=== PATIENT | male | born 1960 | race Two or more races ===

== ENCOUNTER 2016-09-22 10:09 | Observation (INO) | payer BC ==
[2016-09-22] MEDS ORDERED: ONDANSETRON 4 MG/2 ML VIAL IVP STA (10:46)
[2016-09-22] MEDS ORDERED: SODIUM CHLORIDE 0.9% 1,000 ML IV STA (10:46)
--- NOTE | 2016-09-22 10:52 | ED ---
General Adult HPI - General Source: patient, RN notes reviewed Mode of arrival: ambulatory Limitations: no limitations <Arvind Jiménez - Last Filed: 09/22/16 13:31> <Garrett Cruz - Last Filed: 09/22/16 22:05> - General Chief complaint: Nausea/Vomiting/Diarrhea Stated complaint: NAUSEA Time Seen by Provider: 09/22/16 10:36 - History of Present Illness Initial comments: Patient is a 55-year-old male who presents emergency room today with a chief complaint of nausea. Patient states she's had nausea with increased belching over the last 3-4 days. Patient states that seems to be worse when he eats or drinks. Patient denies any abdominal pain. States he did talk to a GI doctor who would like to do a scope and advised him come to the emergency room to have workup on the gallbladder performed. States was also worried about possible inferior NV as his had increased belching. Patient denies any pain. Denies any other complaints symptoms. Patient denies any recent fever, chills, shortness of breath, chest pain, back pain, abdominal pain, nausea or vomiting, numbness or tingling, dysuria or hematuria, constipation or diarrhea, headaches or visual changes, or any other complaints. (Arvind Jiménez) - Related Data Home Medications Medication Instructions Recorded Confirmed Omeprazole [PriLOSEC] 20 mg PO AC-BRKFST 09/22/16 09/22/16 Allergies Allergy/AdvReac Type Severity Reaction Status Date / Time Latex, Natural Rubber Allergy Unknown Verified 09/22/16 10:37 Review of Systems ROS Other: All systems not noted in ROS Statement are negative. <Arvind Jiménez - Last Filed: 09/22/16 13:31> ROS Other: All systems not noted in ROS Statement are negative. <Garrett Cruz - Last Filed: 09/22/16 22:05> ROS Statement: Those systems with pertinent positive or pertinent negative responses have been documented in the HPI. Past Medical History Past Medical History: GERD/Reflux, Hypertension History of Any Multi-Drug Resistant Organisms: None Reported Additional Past Surgical History / Comment(s): left hernia repair, varicose veins Past Anesthesia/Blood Transfusion Reactions: No Reported Reaction Past Psychological History: No Psychological Hx Reported Smoking Status: Former smoker Past Alcohol Use History: None Reported Past Drug Use History: None Reported - Past Family History Father Family Medical History: No Reported History <Ashu Jiménezony - Last Filed: 09/22/16 13:31> General Exam Limitations: no limitations <Arvind Jiménez - Last Filed: 09/22/16 13:31> <Garrett Cruz - Last Filed: 09/22/16 22:05> - General Exam Comments Initial Comments: General: The patient is awake and alert, in no distress, and does not appear acutely ill. Eye: Pupils are equal, round and reactive to light, extra-ocular movements are intact. No nystagmus. There is normal conjunctiva bilaterally. No signs of icterus. Ears, nose, mouth and throat: There are moist mucous membranes and no oral lesions. Neck: The neck is supple, there is no tenderness or JVD. Cardiovascular: There is a regular rate and rhythm. No murmur, rub or gallop is appreciated. Respiratory: Lungs are clear to auscultation, respirations are non-labored, breath sounds are equal. No wheezes, stridor, rales, or rhonchi. Gastrointestinal: Soft, non-distended, non-tender abdomen without masses or organomegaly noted. There is no rebound or guarding present. No CVA tenderness. Bowel sounds are unremarkable. Musculoskeletal: Normal ROM, no tenderness. Strength 5/5. Sensation intact. Pulses equal bilaterally 2+. Neurological: A&O x 3. CN II-XII intact, There are no obvious motor or sensory deficits. Coordination appears grossly intact. Speech is normal. Skin: Skin is warm and dry and no rashes or lesions are noted. Psychiatric: Cooperative, appropriate mood & affect, normal judgment. (Arvind Jiménez) Medical Decision Making - Lab Data Result diagrams: 09/22/16 11:18 09/22/16 11:18 <Arvind Jiménez - Last Filed: 09/22/16 13:31> - Lab Data Result diagrams: 09/22/16 11:18 09/22/16 11:18 <Garrett Cruz - Last Filed: 09/22/16 22:05> - Medical Decision Making Patient's labs reviewed and are unremarkable. Case discussed and seen by attending physician Dr. Cruz at bedside. He discuss case with GI specialist Dr. Sarkar will plan to do a scope tomorrow also discussed with admitting physician Dr. Reyes who admit the patient for serial enzymes. (Arvind Jiménez) I saw this patient in conjunction with the physician promotional advertising assistant. I performed independent history and physical exam. Agree with case management. (Garrett Cruz) - Lab Data Lab Results 09/22/16 09/22/16 09/22/16 Range/Units 11:18 11:18 11:18 WBC 5.1 (3.8-10.6) k/uL RBC 5.37 (4.30-5.90) m/uL Hgb 16.1 (13.0-17.5) gm/dL Hct 47.7 (39.0-53.0) % MCV 88.7 (80.0-100.0) fL MCH 30.0 (25.0-35.0) pg MCHC 33.8 (31.0-37.0) g/dL RDW 13.3 (11.5-15.5) % Plt Count 221 (150-450) k/uL Neutrophils % 67 % Lymphocytes % 24 % Monocytes % 6 % Eosinophils % 1 % Basophils % 1 % Neutrophils # 3.4 (1.3-7.7) k/uL Lymphocytes # 1.2 (1.0-4.8) k/uL Monocytes # 0.3 (0-1.0) k/uL Eosinophils # 0.0 (0-0.7) k/uL Basophils # 0.0 (0-0.2) k/uL PT 10.9 (9.0-12.0) sec INR 1.1 (<1.1) APTT 22.6 (22.0-30.0) sec Sodium 141 (137-145) mmol/L Potassium 4.1 (3.5-5.1) mmol/L Chloride 104 (98-107) mmol/L Carbon Dioxide 26 (22-30) mmol/L Anion Gap 11 mmol/L BUN 13 (9-20) mg/dL Creatinine 0.78 (0.66-1.25) mg/dL Est GFR (MDRD) Af Amer >60 (>60 ml/min/1.73 sqM) Est GFR (MDRD) Non-Af >60 (>60 ml/min/1.73 sqM) Glucose 103 H (74-99) mg/dL Calcium 9.0 (8.4-10.2) mg/dL Total Bilirubin 0.7 (0.2-1.3) mg/dL AST 25 (17-59) U/L ALT 44 (21-72) U/L Alkaline Phosphatase 66 (38-126) U/L Total Creatine Kinase (55-170) U/L CK-MB (CK-2) (0.0-2.4) ng/mL CK-MB (CK-2) Rel Index Troponin I (0.000-0.034) ng/mL Total Protein 7.8 (6.3-8.2) g/dL Albumin 4.3 (3.5-5.0) g/dL Amylase 95 (30-110) U/L Lipase 38 (23-300) U/L Urine Color Urine Appearance (Clear) Urine pH (5.0-8.0) Ur Specific Homer (1.001-1.035) Urine Protein (Negative) Urine Glucose (UA) (Negative) Urine Ketones (Negative) Urine Blood (Negative) Urine Nitrate (Negative) Urine Bilirubin (Negative) Urine Urobilinogen (<2.0) mg/dL Ur Leukocyte Esterase (Negative) 09/22/16 09/22/16 Range/Units 11:18 12:35 WBC (3.8-10.6) k/uL RBC (4.30-5.90) m/uL Hgb (13.0-17.5) gm/dL Hct (39.0-53.0) % MCV (80.0-100.0) fL MCH (25.0-35.0) pg MCHC (31.0-37.0) g/dL RDW (11.5-15.5) % Plt Count (150-450) k/uL Neutrophils % % Lymphocytes % % Monocytes % % Eosinophils % % Basophils % % Neutrophils # (1.3-7.7) k/uL Lymphocytes # (1.0-4.8) k/uL Monocytes # (0-1.0) k/uL Eosinophils # (0-0.7) k/uL Basophils # (0-0.2) k/uL PT (9.0-12.0) sec INR (<1.1) APTT (22.0-30.0) sec Sodium (137-145) mmol/L Potassium (3.5-5.1) mmol/L Chloride (98-107) mmol/L Carbon Dioxide (22-30) mmol/L Anion Gap mmol/L BUN (9-20) mg/dL Creatinine (0.66-1.25) mg/dL Est GFR (MDRD) Af Amer (>60 ml/min/1.73 sqM) Est GFR (MDRD) Non-Af (>60 ml/min/1.73 sqM) Glucose (74-99) mg/dL Calcium (8.4-10.2) mg/dL Total Bilirubin (0.2-1.3) mg/dL AST (17-59) U/L ALT (21-72) U/L Alkaline Phosphatase (38-126) U/L Total Creatine Kinase 92 (55-170) U/L CK-MB (CK-2) 1.7 (0.0-2.4) ng/mL CK-MB (CK-2) Rel Index 1.8 Troponin I <0.012 (0.000-0.034) ng/mL Total Protein (6.3-8.2) g/dL Albumin (3.5-5.0) g/dL Amylase (30-110) U/L Lipase (23-300) U/L Urine Color Yellow Urine Appearance Clear (Clear) Urine pH 5.5 (5.0-8.0) Ur Specific Homer 1.012 (1.001-1.035) Urine Protein Negative (Negative) Urine Glucose (UA) Negative (Negative) Urine Ketones Negative (Negative) Urine Blood Negative (Negative) Urine Nitrate Negative (Negative) Urine Bilirubin Negative (Negative) Urine Urobilinogen <2.0 (<2.0) mg/dL Ur Leukocyte Esterase Negative (Negative) Disposition Time of Disposition: 13:32 <Arvind Jiménez - Last Filed: 09/22/16 13:31> <Garrett Cruz - Last Filed: 09/22/16 22:05> Clinical Impression: Nausea, Indigestion Disposition: ADMITTED IP TO THIS [facility] Condition: Good Addendum entered and electronically signed by Arvind Jiménez PAC 09/22/16 13: 55: EKG performed at 1123: A 12-lead EKG was performed and interpreted by me as showing the following: Rate is 60, and rhythm is normal sinus. There are normal QRS complexes and normal R-wave progression. ST segments have no elevation or depression, and MT segments appear normal.
[2016-09-22 11:55] LABS: Basophils % (A) 1 %; CH 30.9; CHCM 34.9; Eosinophils % (A) 1 %; HCT 47.7 % (39.0-53.0); HGB 16.1 gm/dL (13.0-17.5); Luc # (Auto) 0.07; Luc % (Auto) 1; Lymphocytes # (A) 1.2 k/uL (1.0-4.8); Lymphocytes % (A) 24 %; MCHC 33.8 g/dL (31.0-37.0); MCV 88.7 fL (80.0-100.0); Mean Platelet Volume 7.6; Monocytes # (A) 0.3 k/uL (0-1.0); Monocytes % (A) 6 %; Neutrophils # (A) 3.4 k/uL (1.3-7.7); Neutrophils % (A) 67 %; RBC 5.37 m/uL (4.30-5.90); RDW 13.3 % (11.5-15.5); WBC 5.1 k/uL (3.8-10.6); WBC (Perox) 4.58
--- NOTE | 2016-09-22 12:13 | US ---
EXAMINATION TYPE: US abdomen limited DATE OF EXAM: 09/22/2016 11:58 AM COMPARISON: No previous CLINICAL HISTORY: Nausea x 1 week. EXAM MEASUREMENTS: Liver Length: 17.3cm Gallbladder Wall: 0.2cm CBD: 0.4cm Right Kidney: 12.1 x 5.2 x 5.6cm TECHNOLOGIST IMPRESSION: Pancreas: obscured by bowel gas Liver: measures in upper limits of normal at 17.3cm, limited by rib shadowing Gallbladder: wnl Evidence for sonographic Riggs's sign: no CBD: visualized portion wnl, limited by overlying bowel gas Right Kidney: visualized portions wnl, limited by rib shadowing and overlying bowel gas IMPRESSION: Liver is at the upper limit of normal for size. Exam is limited.
[2016-09-22 12:20] LABS: INR 1.1 (<1.1); Partial Thromboplastin Time 22.6 sec (22.0-30.0); Prothrombin Time 10.9 sec (9.0-12.0)
[2016-09-22 12:26] LABS: ALT 44 U/L (21-72); AST 25 U/L (17-59); Alkaline Phosphatase 66 U/L (38-126); Anion Gap 11 mmol/L; Blood Urea Nitrogen 13 mg/dL (9-20); Carbon Dioxide 26 mmol/L (22-30); Chloride 104 mmol/L (98-107); Glucose 103 mg/dL (74-99); Non-African American GFR(MDRD) >60 (>60 ml/min/1.73 sqM); Sodium 141 mmol/L (137-145); Total Bilirubin 0.7 mg/dL (0.2-1.3); Total Protein 7.8 g/dL (6.3-8.2)
[2016-09-22 12:41] LABS: Amylase 95 U/L (30-110); Potassium 4.1 mmol/L (3.5-5.1)
[2016-09-22 12:42] LABS: Creatine Kinase 92 U/L (55-170)
[2016-09-22 12:47] LABS: Appearance,Urine Clear (Clear); Bilirubin,Urine Negative (Negative); Glucose,Urine (UA) Negative (Negative); Ketones,Urine Negative (Negative); Leukocyte Esterase,Urine Negative (Negative); Nitrite,Urine Negative (Negative); PH, Urine 5.5 (5.0-8.0); Protein,Urine Negative (Negative); Specific Gravity,Urine 1.012 (1.001-1.035); UA Billing (MACRO vs. MICRO) CHEM; Urobilinogen,Urine <2.0 mg/dL (<2.0)
[2016-09-22 12:54] LABS: Creatine Kinase MB 1.7 ng/mL (0.0-2.4); Troponin I <0.012 ng/mL (0.000-0.034)
[2016-09-22] MEDS ORDERED: ONDANSETRON 4 MG/2 ML VIAL IVP PRN (13:33)
[2016-09-22] MEDS ORDERED: ACETAMINOPHEN TAB 325 MG TAB PO PRN (13:33)
[2016-09-22] MEDS ORDERED: NALOXONE 0.4 MG/ML 1 ML VIAL IV PRN (13:33)
[2016-09-22] MEDS ORDERED: SODIUM CHLORIDE 0.9% 1,000 ML IV ONE (13:33)
[2016-09-22] MEDS ORDERED: NITROGLYCERIN SL TABS 0.4 MG TAB SUBLINGUAL PRN (13:35)
[2016-09-22 17:44] LABS: Creatine Kinase 78 U/L (55-170)
[2016-09-22 17:56] LABS: Creatine Kinase MB 1.3 ng/mL (0.0-2.4); Troponin I <0.012 ng/mL (0.000-0.034)
--- NOTE | 2016-09-22 19:07 | HP ---
DATE OF ADMISSION: This patient is a 55-year-old who came in with complaints of belching, nausea that has been going on for about 7 days. Patient does not seem to eat anything or like anything. Patient denied any abdominal pain, denied any GI bleed. Patient called a lehr cutter. 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 To rule out inferior wall myocardial infarction, we are admitting the patient ( ) with a couple of sets of troponins. EKG was done which showed some possibly significant Q waves, because of which I am consulting Cardiology as well. Patient denied any fever, chills. Patient denied any abdominal pain, dysuria, headaches. ROS: all other systems were reviewed and were negative. Home medications include omeprazole, which is not helping his symptoms. PAST MEDICAL HISTORY: 1. Gastroesophageal reflux disease. 2. Hypertension. 3. Hiatal hernia repair. 4. Varicose veins. SOCIAL HISTORY: Former smoker. Quit smoking years ago. Denied any alcohol abuse or any drug abuse. FAMILY HISTORY: Denied any family history of hypertension, diabetes mellitus or hyperlipidemia in the family. PHYSICAL EXAMINATION: VITAL SIGNS: Temperature 97.9, pulse of 73, respiratory rate of 18, blood pressure 132/75. Saturating at 98% on room air. GENERAL: The patient is alert and oriented x3, not in any acute distress. Well developed, well nourished. HEENT: Pupils are round and equally reacting to light. EOMI. No scleral icterus. No conjunctival pallor. Normocephalic, atraumatic. No pharyngeal erythema. No thyromegaly. CARDIOVASCULAR: S1 and S2 present. No murmurs, rubs, or gallops. PULMONARY: Chest is clear to auscultation, no wheezing or crackles. ABDOMEN: Soft, nontender, nondistended, normoactive bowel sounds. No palpable organomegaly. MUSCULOSKELETAL: No joint swelling or deformity. EXTREMITIES: No cyanosis, clubbing, or pedal edema. NEUROLOGICAL: Gross neurological examination did not reveal any focal deficits. SKIN: No rashes. LABORATORY DATA: CBC, MP are essentially within normal limits. Comprehensive metabolic profile is essentially within normal limits. ASSESSMENT AND PLAN: 1. Belching. Differentials include inferior wall myocardial infarction and gastritis, for which patient is undergoing upper GI endoscopy. To rule out inferior wall myocardial infarction, considering some questionable Q waves in the inferior leads (lead II and lead III), I am going ahead and consulting Cardiology for further evaluation. In the meantime, we will get 2 sets of troponins and EKG. 2. Rule out acute myocardial infarction. 3. Rule out gastroesophageal reflux disease, gastritis. Patient will be admitted for overnight observation and possible upper GI endoscopy tomorrow as per Gastroenterology. EBER
[2016-09-22] MEDS: PANTOPRAZOLE 40 MG/10 ML VIAL IVP SCH (20:17)
[2016-09-22] MEDS ORDERED: FAMOTIDINE 20 MG TAB PO SCH (21:00)
[2016-09-23 00:28] LABS: Creatine Kinase 73 U/L (55-170)
[2016-09-23 00:42] LABS: Creatine Kinase MB 1.2 ng/mL (0.0-2.4); Troponin I <0.012 ng/mL (0.000-0.034)
[2016-09-23] MEDS ORDERED: PROPOFOL 10 MG/ML 20 ML VIAL IV ONE (06:50)
[2016-09-23] MEDS ORDERED: IV FLUID CONTINUATION 1,000 ML IV ONE (06:50)
--- NOTE | 2016-09-23 07:50 | P.PCN ---
Date of Procedure: 09/23/16 Procedure(s) Performed: Procedure: Esophagogastroduodenoscopy and biopsy. Preoperative diagnosis: Dyspepsia. Postoperative diagnosis: 1. Small hiatal hernia with no obvious esophagitis or complicated reflux disease. 2. Mild antral gastritis with no ulcers or gastric outlet obstruction. 3. Multiple biopsies obtained from the duodenum, antrum and esophagus. Preparation and sedation: Were provided by anesthesia. Brief clinical history: The patient is a 55-year-old male who was admitted to the hospital through the emergency room because of belching and nausea of 1 week duration. Patient was not able to eat or drink because of this sensation. He has been taking omeprazole for the last year or so on his own because of reflux and heartburn kind symptoms. No other alarm symptoms such as dysphagia or bleeding. He presented to the emergency room where an ultrasound of the abdomen was normal and his lab work were normal as well which included pancreatic and liver enzymes. He was kept in the hospital overnight and he had serial cardiac enzymes which were normal. The details are summarized in the history and physical and dictated consultation. This evaluation is to assess for peptic ulcer disease or other pathology. Procedure: With the patient on his left lateral decubitus position and after informed consent and adequate sedation, I passed the Olympus-GIF 160 video upper endoscope through the cricopharyngeus down the esophagus. GE junction was around 41 cm from the incisors. There was a widely patent mucosal ring at that level but no evidence of esophagitis or Cheng's esophagus. There was a small sliding hiatal hernia around 1-2 cm in size then the endoscope was advanced into the stomach which was insufflated with air and inspected in detail including the retroflex view in the cardia. There was some minimal mottling and erythema in the antrum consistent with mild gastritis but no ulcers or erosions. Pyloric channel, duodenal bulb, post bulbar area and descending duodenum appeared within normal limits. Because of his symptoms, I obtained multiple biopsies from the duodenum, antrum and esophagus then the endoscope was withdrawn. The patient tolerated the procedure well. Plan: The patient was reassured. Will await pathology results and make further plans accordingly. Will allow liquid diet this morning, then advance as tolerated to a soft diet. I will discuss with you.
[2016-09-23] MEDS: PANTOPRAZOLE 40 MG/10 ML VIAL IVP SCH (08:01)
[2016-09-23 08:31] VITALS: RESP 18
--- NOTE | 2016-09-23 08:41 | CONS ---
DATE OF CONSULTATION: 09/23/2016 REASON FOR CONSULTATION: Dyspepsia. HISTORY: The patient is a 55-year-old male who was admitted to the hospital through the emergency room because of belching and nausea of one week duration. The patient has been taking omeprazole for reflux and heartburn type symptoms for the last years or so. He denied vomiting, or any black stools. No dysphagia or odynophagia. No chest pains or exertional symptoms. 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 The emergency room physician called me after his evaluation and it was decided to keep him in the hospital for serial cardiac enzymes and for upper endoscopy today. The patient has a history of hypertension and reflux symptoms. Prior surgeries include hernia repair and varicose vein surgery. SOCIAL HISTORY: He is a former smoker, quit years back, does not drink alcohol. Family history is not contributory. His medications at home include omeprazole. REVIEW OF SYSTEMS: He denied any constitutional symptoms. No headaches, double vision or other neurologic complaints. No chest pain or shortness of breath or cardiopulmonary symptoms. No other gastrointestinal problems. No genitourinary complaints. No skin rashes. No endocrine problems or lymph gland abnormalities. No psychiatric or immunologic problems. On physical examination, he appeared stated age, very pleasant, in no acute distress. Temperature 98.7, pulse 57, respirations 16, blood pressure 90/45. HEAD AND NECK: Normocephalic, atraumatic. Conjunctivae pink. Sclerae not icteric. No masses in the neck or tracheal shifts. No adenopathy or thyromegaly. LUNGS: Clear to auscultation with no dullness to percussion. HEART: Regular. No abnormal sounds, murmurs, gallops, or friction rubs. ABDOMEN: Soft. No masses or organomegaly or tenderness. Bowel sounds positive. EXTREMITIES: No clubbing, cyanosis, or edema. Neurologic examination reveals cranial nerves intact. No gross sensory or motor abnormalities. Laboratory workup revealed normal CBC, PT, INR and chem panel and his amylase and lipase were normal. He had normal cardiac enzyme series and normal urinalysis. His EKG showed some ( ) wave changes and Cardiology has been consulted as well. Ultrasound of the abdomen normal. ASSESSMENT: Dyspepsia could be related to peptic ulcer disease or complicated reflux disease. No suggestion at this time of any acute myocardial injury. PLAN: I will proceed with an upper endoscopy this morning.
[2016-09-23 08:47] LABS: Cholesterol 191 mg/dL (<200); HDL Cholesterol 38 mg/dL (40-60); Triglycerides 80 mg/dL (<150)
--- NOTE | 2016-09-23 09:07 | P.CRDCN ---
History of Present Illness Consult date: 09/23/16 Chief complaint: Epigastric discomfort History of present illness: This is a pleasant 55-year-old gentleman with a past medical history significant for hypertension presented to the emergency room complaining of severe nausea. The patient has been experiencing severe nausea over the last few days. He had some mild epigastric discomfort. He denies having any chest pain or chest discomfort. He underwent an upper endoscopy yesterday and that showed mild gastritis with a small hiatal hernia. The EKG showed sinus rhythm without any significant ST or T-wave abnormalities. The cardiac enzymes were checked and came in to be unremarkable. He is not aware of any prior history of coronary artery disease but he has high blood pressure and currently he is on losartan. I recommended proceeding with a stress test and also I'll obtain an echocardiogram was Doppler. Past Medical History Past Medical History: GERD/Reflux, Hypertension History of Any Multi-Drug Resistant Organisms: None Reported Past Surgical History: Hernia Repair Additional Past Surgical History / Comment(s): 03/07/16 Robot assisted laparoscopic R inguinal hernia reair with mesh, left hernia repair, varicose veins Past Anesthesia/Blood Transfusion Reactions: No Reported Reaction Past Psychological History: No Psychological Hx Reported Additional Psychological History / Comment(s): Pt is independent. Smoking Status: Never smoker Past Alcohol Use History: Rare Past Drug Use History: None Reported - Past Family History Father Family Medical History: No Reported History Mother Family Medical History: No Reported History Medications and Allergies Home Medications Medication Instructions Recorded Confirmed Type Omeprazole [PriLOSEC] 20 mg PO AC-BRKFST 09/22/16 09/22/16 History Allergies Allergy/AdvReac Type Severity Reaction Status Date / Time Latex, Natural Rubber Allergy Unknown Verified 09/22/16 10:37 Physical Exam Vitals: Vital Signs Temp Pulse Pulse Resp BP BP Pulse Ox 09/23/16 08:00 97.5 F L 70 18 118/70 09/23/16 04:00 98.7 F 57 L 16 90/45 100 09/23/16 03:46 44 L 16 09/23/16 00:00 45 L 16 113/57 97 09/22/16 20:00 53 L 16 09/22/16 19:44 97.6 F 57 L 16 114/69 95 09/22/16 17:09 98.6 F 59 L 18 132/78 96 09/22/16 16:00 16 09/22/16 15:22 16 09/22/16 15:00 98.3 F 60 18 146/80 98 09/22/16 14:43 98.4 F 58 L 16 128/74 97 Intake and Output 09/22/16 09/23/16 09/23/16 22:59 06:59 14:59 Intake Total 118 300 Balance 118 300 Intake: IV 300 Oral 118 Other: # Voids 2 2 Weight 106.5 kg - Constitutional General appearance: no acute distress - Respiratory Respiratory: bilateral: CTA - Cardiovascular Rhythm: regular Heart sounds: normal: S1, S2 Results 09/22/16 11:18 09/22/16 11:18 Cardiac Enzymes 09/22/16 09/22/16 Range/Units 17:12 23:38 CK-MB (CK-2) 1.3 1.2 (0.0-2.4) ng/mL Troponin I <0.012 <0.012 (0.000-0.034) ng/mL Current Medications Generic Name Dose Route Start Last Admin Trade Name Freq PRN Reason Stop Dose Admin Acetaminophen 650 mg 09/22/16 13:33 Tylenol Tab PO Q6HR PRN Mild Pain or Fever > 100.5 Naloxone HCl 0.2 mg 09/22/16 13:33 Narcan IV Q2M PRN Opioid Reversal Nitroglycerin 0.4 mg 09/22/16 13:35 Nitrostat SUBLINGUAL Q5M PRN Chest Pain Ondansetron HCl 4 mg 09/22/16 13:33 Zofran IVP Q8HR PRN Nausea And Vomiting Pantoprazole Sodium 40 mg 09/22/16 21:00 09/23/16 08:01 Protonix IVP 40 mg BID SARITA Administration Intake and Output 09/22/16 09/23/16 09/23/16 22:59 06:59 14:59 Intake Total 118 300 Balance 118 300 Intake: IV 300 Oral 118 Other: # Voids 2 2 Weight 106.5 kg Assessment and Plan Plan: Assessment #1 epigastric discomfort #2 hypertension Plan #1 CAD with a stress test [place] #2 obtain an echocardiogram was Doppler
--- NOTE | 2016-09-23 11:06 | ECHOF ---
Referral Reason:abnormal ekg MEASUREMENTS -------- HEIGHT: 182.9 cm WEIGHT: 106.1 kg BP: RVIDd: 3.8 cm (< 3.3) IVSd: 1.3 cm (0.6 - 1.1) LVIDd: 4.5 cm (3.9 - 5.3) LVPWd: 1.4 cm (0.6 - 1.1) IVSs: 1.6 cm LVIDs: 4.1 cm LVPWs: 1.3 cm LA Diam: 4.2 cm (2.7 - 3.8) LAESV Index (A-L): 26.11 ml/m Ao Diam: 3.2 cm (2.0 - 3.7) AV Cusp: 2.3 cm (1.5 - 2.6) LA Diam: 4.4 cm (2.7 - 3.8) MV EXCURSION: 17.332 mm (> 18.000) MV EF SLOPE: 82 mm/s (70 - 150) EPSS: 1.1 cm MV E Naeem: 0.50 m/s MV DecT: 289 ms MV A Naeem: 0.64 m/s MV E/A Ratio: 0.77 FINDINGS -------- Sinus rhythm. This was a technically good study. LV size, wall thickness and systolic function are normal, with an EF greater than 55%. The right ventricle is normal in size. Normal LA size by volume 22+/-6 ml/m2. The right atrial size is normal. The aortic valve is trileaflet, and appears structurally normal. No aortic stenosis or regurgitation. Mild mitral annular calcification present. Mild mitral regurgitation is present. Mild tricuspid regurgitation present. There is no evidence of pulmonary hypertension. The right ventricular systolic pressure, as measured by Doppler, is {RVSP}. There is no pulmonic regurgitation present. The aortic root size is normal. There is no pericardial effusion. CONCLUSIONS -------- 1. LV size, wall thickness and systolic function are normal, with an EF greater than 55%. 2. Mild mitral annular calcification present. 3. Mild mitral regurgitation is present. 4. Mild tricuspid regurgitation present. 5. There is no evidence of pulmonary hypertension. 6. The right ventricular systolic pressure, as measured by Doppler, is {RVSP}. FEATHER BALER: Saira Oviedo RDCS
--- NOTE | 2016-09-23 12:33 | EST ---
DATE OF SERVICE: 09/23/2016 AGE: 55Y SEX: M HT: 73" WT: 234 lbs. Protocol Slim: X Other: Stage: III Dur. of Exercise: 9 minutes *Heart Rate Blood Pressure *Rest: 62 Rest: 123/75 * *Max. Achieved: 149 Maximum BP: 189/60 85% PMHR: 142 100% PMHR: 167 *METS: 10.5 INDICATIONS: Abnormal EKG. MEDICATIONS: Omeprazole. Baseline EKG revealed a normal sinus rhythm without significant ST-T changes. Patient walked on standard Slim protocol for 9 minutes, achieved a maximum heart rate of 149 beats per minute, which is more than 85% of predicted maximal. He developed fatigue and shortness of breath, but did not have any angina or arrhythmia and EKG did not reveal any ST segment changes to indicate ischemia. FINAL IMPRESSION: Fair exercise capacity with a negative stress test by EKG criteria.
[2016-09-23] MEDS ORDERED: IOHEXOL 350 MG/ML 25 ML BOTTLE (ORAL USE) PO PRN (13:33)
[2016-09-23] MEDS ORDERED: RX INFO: IV CONTRAST WAS GIVEN 1 EACH MISC MISCELLANE PRN (13:33)
[2016-09-23 13:55] VITALS: BMI 30.9
[2016-09-23 15:37] VITALS: BP 134/75; PULSE 56; TEMP 98.2
--- NOTE | 2016-09-23 16:32 | CT ---
EXAMINATION TYPE: CT chest abdomen w con DATE OF EXAM: 09/23/2016 4:19 PM INDICATION: Pt states of chest and abdominal pain with nausea and indigestion. COMPARISON: NONE CT DLP: 1234.0 mGycm CONTRAST: Performed with Oral Contrast and with IV Contrast, patient injected with 100 mL of Omnipaque 300. TECHNIQUE: Axial images at 5 mm thick sections. Reconstructed images in the coronal plane. Delayed images through the kidneys. FINDINGS: CT CHEST: There is a hypodensity within the left lobe thyroid. Left lobe thyroid was previously biops ied 05/30/2016. No suspicious lung nodules or focal infiltrates are present. No enlarged mediastinal or hilar adenopathy is evident. The ascending aorta diameter at the level of the main pulmonary artery is 3.4 cm. The main pulmonary artery diameter at the bifurcation is 2.[address] ABDOMEN: There are scattered small shotty lymph nodes in the periaortic region Liver: Normal Spleen: Normal Pancreas: Normal Adrenal glands: The adrenal glands are normal. Gallbladder: Normal Kidneys: No masses are evident. No hydronephrosis is present. Cortical renal cysts are present in t he left kidney Delayed images were obtained through the kidneys, which remain unremarkable. Aorta: Vascular calcification is within the aorta. Inferior vena cava: Normal. CT PELVIS: Upper portion only Loops of bowel within the abdomen and pelvis are normal. There are loops of bowel which are incom pletely distended or lack oral contrast limiting their evaluation. Appendix: Normal as visualized. IMPRESSIONS: 1. Hypodensity within the inferior left lobe thyroid.
--- NOTE | 2016-09-23 22:56 | DS ---
DATE OF ADMISSION: 09/22/2016 DATE OF DISCHARGE: 09/23/2016 A 55-year-old admitted with belching and patient was evaluated with upper GI endoscopy that showed some gastritis and hiatal hernia, may be responsible for his significant belching. Patient also underwent CT of the chest and abdomen to rule out any aneurysms. CT of the chest and abdomen only revealed some hypodensity in the thyroid and patient also underwent stress test because of some Q waves in the inferior leads. stress test was also negative. Patient was seen and examined on the day of discharge and patient will be discharged in stable medical condition to home. ASSESSMENT AND PLAN: 1. Belching, probably related to gastritis or hiatal hernia. Ruled out myocardial infarction. 2. Ruled out abdominal or thoracic aneurysms. 3. Gastritis and esophagitis. Patient will be discharged on Protonix twice a day for 15 days followed by once a day and Maalox on as-needed basis. Hopefully, that will improve the symptoms.
== END 2016-09-23 16:41 | disposition home or self-care (01) ==
LOC: EC 10:09 → 3OBS 13:35
PROVIDERS: ADMIT Internal Medicine; ATTEND Internal Medicine
DX: K21.0 Gastro-esophageal reflux disease with esophagitis (principal); K29.50 Unspecified chronic gastritis without bleeding; K44.9 Diaphragmatic hernia without obstruction or gangrene; I10 Essential (primary) hypertension; I83.90 Asymptomatic varicose veins of unspecified lower extremity; Z79.899 Other long term (current) drug therapy; Z91.040 Latex allergy status; Z87.891 Personal history of nicotine dependence
CPT/HCPCS: 96361 ×4; 96374 ×2; 99285 ×2; 36415; 93005; 93017; 93306; 88305; 80061; 80053; 82150; 82550; 82553; 83690; 84484; 85025; 85610; 85730; 81003; 88342; 76705; 71260; 74160; 43239; G0378 ×2; J2405; Q9967; J2704; C9113 ×2; 96375; 99153

== ENCOUNTER → 2016-12-08 | Outpatient (CLI) | payer BC ==
--- NOTE | 2016-12-08 12:49 | CT ---
EXAMINATION TYPE: CT angio head DATE OF EXAM: 12/08/2016 12:35 PM COMPARISON: NONE HISTORY: Patient complains of headaches behind left orbit and dizziness. CT DLP: 187.4 mGycm Automated exposure control for dose reduction was used. TECHNIQUE: Performed with IV Contrast, patient injected with 100 mL of Omnipaque 350. 3D reconstructed images are created on an independent workstation and reviewed. FINDINGS: There is slightly more prominent or dominant right vertebral artery. Vertebral arteries are patent to the basilar junction There is no significant focal stenosis or aneurysmal change in the posterior ci rculation. There are hypoplastic posterior communicating arteries identified bilaterally. Images of the anterior circulation show small caliber but patent anterior cerebral arteries bilateral ly. There is no significant focal stenosis or aneurysmal change seen. Patent short segment anterior c ommunicating artery is present. IMPRESSION: NO SIGNIFICANT FOCAL STENOSIS OR ANEURYSMAL CHANGE AT THE LEVEL OF THE [place].
== END | disposition home or self-care (01) ==
LOC: RADXRMAIN 08:02
PROVIDERS: ATTEND Anesthesiology
DX: R51 Headache (principal); R42 Dizziness and giddiness
CPT/HCPCS: 70496; Q9967

== ENCOUNTER 2017-10-21 06:46 | Day surgery (SDC) | payer BC ==
[2017-10-19 14:07] VITALS: BMI 29.8
[2017-10-21] MEDS: LACTATED RINGERS 1,000 ML IV SCH ×2 (07:03→07:25)
[2017-10-21] MEDS ORDERED: LIDOCAINE 1% 20 ML VIAL (10MG/ML) FOR IV START INTRADERMA ONE ×2 (07:03→07:25)
[2017-10-21 07:15] VITALS: RESP 18; TEMP 97.8
[2017-10-21] MEDS ORDERED: LIDOCAINE 1% INJ 10MG/ML (20 ML MDV) ONE (08:01)
[2017-10-21] MEDS ORDERED: PROPOFOL 10 MG/ML 20 ML VIAL IV ONE (08:01)
--- NOTE | 2017-10-21 08:24 | P.PCN ---
Date of Procedure: 10/21/17 Procedure(s) Performed: Brief history: Patient is a pleasant 56-year-old male, scheduled for an elective upper endoscopy as well as colonoscopy as a part of evaluation of evaluation of long- standing history of GERD and screening for colorectal neoplasia. Procedure performed: Esophagogastroduodenoscopy with biopsy Colonoscopy Preoperative diagnosis: GERD Screening for colon cancer Anesthesia: MAC Procedure: After informed consent was obtained from the patient was brought into the endoscopy unit and IV sedation was administered by anesthesia under continuous monitoring. Initially upper endoscopy was done. The Olympus GF 160 video endoscope was inserted inserted into the mouth and esophagus intubated without any difficulty and was gradually advanced into the stomach and duodenum and carefully examined. The bulb and second part of the duodenum appeared normal. The scope was then withdrawn into the stomach adequately insufflated with air and upon careful examination the antrum had patchy areas of erythema consistent with gastritis and biopsies were done from this area. The body, cardia and fundus appeared normal. The scope was then withdrawn into the esophagus. The GE junction was located at 40 cm to the incisors. small hiatal hernia noted. It appeared regular with no erythema erosions or ulcerations. Rest of the esophagus appeared normal. Patient tolerated the procedure well. At this time the patient continued to remain sedation. Initial digital rectal examination was normal. Olympus CF 160 video colonoscope was then inserted into the rectum and gradually advanced to the cecum without any difficulty. Careful examination was performed as the scope was gradually being withdrawn. The prep was excellent. The cecum, ascending colon, transverse colon, descending colon, sigmoid colon and rectum appeared normal. Scattered sigmoid diverticulosis seen. Retroflexion was performed in the rectum and no lesions were noted. Patient tolerated the procedure well. Impression: 1. Upper endoscopy revealed mild antral gastritis and a small hiatal hernia but no evidence of esophagitis or Cheng's esophagus 2. Colonoscopy revealed scattered sigmoid diverticulosis but no evidence of colorectal neoplasia Recommendations: Findings of this examination were discussed with the patient . He was advised to follow with the biopsy results. He can continue Prilosec as needed and follow antireflux measures. He was advised to have a repeat screening colonoscopy in 10 years
[2017-10-21 09:42] VITALS: BP 128/79; PULSE 73
== END 2017-10-21 11:13 | disposition home or self-care (01) ==
LOC: ORWHC2ENDO 06:46
PROVIDERS: ATTEND Internal Medicine Gastroenterology
DX: Z12.11 Encounter for screening for malignant neoplasm of colon (principal); K57.30 Diverticulosis of large intestine without perforation or abscess without bleeding; K29.50 Unspecified chronic gastritis without bleeding; K44.9 Diaphragmatic hernia without obstruction or gangrene; Z88.8 Allergy status to other drugs, medicaments and biological substances; Z91.040 Latex allergy status
CPT/HCPCS: 88305; 43239; J2001; J2704; G0121